=== PATIENT | male | born 1965 | race Caucasian/White ===

== ENCOUNTER → 2016-08-29 | Outpatient (CLI) | payer BC ==
--- NOTE | 2016-08-29 14:13 | US ---
EXAMINATION TYPE: US venous doppler duplex LE DATE OF EXAM: 08/29/2016 1:04 PM COMPARISON: NONE CLINICAL HISTORY: Edema, R60.0. Bilateral ankle swelling x 2 or 3 months SIDE PERFORMED: Bilateral TECHNIQUE: The lower extremity deep venous system is examined utilizing real time linear array sonog deshawn with graded compression, doppler sonography and color-flow sonography. VESSELS IMAGED: External Iliac Vein (EIV) Common Femoral Vein Deep Femoral Vein Greater Saphenous Vein * Femoral Vein Popliteal Vein Small Saphenous Vein * Proximal Calf Veins (* superficial vessels) Right Leg: Negative for DVT Left Leg: Negative for DVT Bilateral ankle edema channels are noted on US. No popliteal fossa lesion is seen. IMPRESSION: THIS EXAMINATION IS NEGATIVE FOR DVT IN BOTH LEGS.
== END | disposition home or self-care (01) ==
LOC: RADUSWWP 12:35
PROVIDERS: ATTEND Family Medicine
DX: R60.0 Localized edema (principal)
CPT/HCPCS: 93970

== ENCOUNTER 2016-09-10 09:37 | Emergency (ER) | payer BC ==
[2016-09-10] MEDS ORDERED: methylPREDNISolone SOD SUCCI 125 MG/2 ML VIAL IV STA (09:53)
[2016-09-10] MEDS ORDERED: ALBUTEROL NEBULIZED 2.5 MG/3 ML INHALATION STA (09:53)
[2016-09-10] MEDS ORDERED: IPRATROPIUM 0.5 MG/2.5 ML NEBU INHALATION STA (09:53)
--- NOTE | 2016-09-10 09:57 | ED ---
SOB HPI - General Chief Complaint: Shortness of Breath Stated Complaint: Asthma, Diff Breathing Time Seen by Provider: 09/10/16 09:49 Source: patient, RN notes reviewed Mode of arrival: ambulatory Limitations: no limitations - History of Present Illness Initial Comments: 51-year-old male presents to the emergency department with a chief complaint of shortness of breath. Patient suffers from asthma. He states the last 5 days and having increasing worsening shortness of breath. Patient states it started just at night but now it all day. Patient denies any fever chills with this. Patient denies a productive cough. Patient states been using his home breathing treatments with no improvement. Patient states that he does have history of asthma and this is much like a typical asthma attack. Patient states she was concerned due to his symptoms without that he should be evaluated. Patient denies any recent fever, chills, chest pain, back pain, abdominal pain, nausea vomiting, numbness or tingling, dysuria or hematuria, constipation or diarrhea, headaches or visual changes, or any other current symptoms. - Related Data Home Medications Medication Instructions Recorded Confirmed Losartan Potassium [Cozaar] 100 mg PO QAM 10/29/13 09/10/16 Albuterol Inhaler [Ventolin Hfa 1 - 2 puff INHALATION Q6HR PRN 02/07/16 09/10/16 Inhaler] Folic Acid 1 mg PO DAILY 02/27/16 09/10/16 Methotrexate Sodium [Methotrexate] 20 mg PO TU 02/27/16 09/10/16 Albuterol Nebulized [Ventolin 2.5 mg INHALATION RT-Q4H PRN 09/10/16 09/10/16 Nebulized] Metoprolol Tartrate [Lopressor] 75 mg PO BID 09/10/16 09/10/16 Previous Rx's Medication Instructions Recorded Ipratropium Nebulized [Atrovent 0.5 mg INHALATION Q6HR PRN #1 box 09/10/16 Nebulized] Mometasone/Formoterol [Dulera 200 2 puff INHALATION RT-BID #1 inhaler 09/10/16 Mcg/5 Mcg Inhaler] predniSONE 50 mg PO DAILY #5 tab 09/10/16 Allergies Allergy/AdvReac Type Severity Reaction Status Date / Time No Known Allergies Allergy Verified 09/10/16 10:07 Review of Systems ROS Statement: Those systems with pertinent positive or pertinent negative responses have been documented in the HPI. ROS Other: All systems not noted in ROS Statement are negative. Past Medical History Past Medical History: Asthma, Hypertension, Osteoarthritis (OA) Additional Past Medical History / Comment(s): AUTO IMMUNE DISORDER -BULLOUS PEMPHIGOID,NON HEALING WOUND RT LEG History of Any Multi-Drug Resistant Organisms: None Reported Past Surgical History: Appendectomy, Joint Replacement, Orthopedic Surgery Additional Past Surgical History / Comment(s): RT & LT KNEE ARTHROSCOPY and breana knee replacements, RT AND LEFT ROTATOR CUFF REPAIR,BENIGN MASS VOCAL CORDS Past Anesthesia/Blood Transfusion Reactions: No Reported Reaction Past Psychological History: No Psychological Hx Reported Smoking Status: Never smoker Past Alcohol Use History: Occasional Past Drug Use History: None Reported - Past Family History Mother Additional Family Medical History / Comment(s): Celiac Father Family Medical History: No Reported History General Exam - General Exam Comments Initial Comments: General: The patient is awake and alert, in moderate distress, and does not appear acutely ill. Eye: Pupils are equal, round and reactive to light, extra-ocular movements are intact; there is normal conjunctiva bilaterally. No signs of icterus. Ears, nose, mouth and throat: There are moist mucous membranes and no oral lesions. Neck: The neck is supple, there is no tenderness. Cardiovascular: There is a regular rate and rhythm. No murmur, rub or gallop is appreciated. Respiratory: Lungs are clear to auscultation, respirations are non-labored, breath sounds diminished with diffuse expiratory wheeze Gastrointestinal: Soft, non-distended, non-tender abdomen without masses or organomegaly noted. There is no rebound or guarding present. No CVA tenderness. Bowel sounds are unremarkable. Back: There is no tenderness to palpation in the midline. There is no obvious deformity. No rashes noted. Musculoskeletal: Normal ROM, no tenderness, There is no pedal edema. There is no calf tenderness or swelling. Sensation intact. Pulses equal bilaterally 2+. Neurological: CN II-XII intact, There are no obvious motor or sensory deficits. Coordination appears grossly intact. Speech is normal. Skin: Skin is warm and dry and no rashes or lesions are noted. Psychiatric: Cooperative, appropriate mood & affect, normal judgment. Limitations: no limitations Course Vital Signs 09/10/16 09/10/16 09/10/16 09:45 10:15 10:30 Temperature 98.4 F Pulse Rate 89 80 80 Respiratory 22 Rate Blood Pressure 135/88 O2 Sat by Pulse 93 L Oximetry 09/10/16 09/10/16 11:02 11:15 Temperature Pulse Rate 82 85 Respiratory Rate Blood Pressure O2 Sat by Pulse Oximetry Medical Decision Making - Medical Decision Making 51-year-old male presents emergency Department chief complaint of shortness of breath. At this time patient's lab work and x-rays reviewed and negative. Patient after the breathing treatment is feeling much better and wheezing has resolved at this time. We did watch the patient on treatment and he is having a relapse of symptoms. This time patient wishes that he go home. This time we did stated that we will start him on steroids for home. We did discuss continuing to 3 decubitus that he has we will refill some of his asthma prescriptions. We did discuss this could worsen and he may need hospitalization return to the emergency Department. The patient is negative plan he stated that he understood. He will be discharged. - Lab Data Result diagrams: 09/10/16 10:29 09/10/16 10:29 Lab Results 09/10/16 09/10/16 Range/Units 10:29 10:29 WBC 5.8 (3.8-10.6) k/uL RBC 4.56 (4.30-5.90) m/uL Hgb 15.7 (13.0-17.5) gm/dL Hct 44.0 (39.0-53.0) % MCV 96.3 (80.0-100.0) fL MCH 34.5 (25.0-35.0) pg MCHC 35.8 (31.0-37.0) g/dL RDW 13.3 (11.5-15.5) % Plt Count 234 (150-450) k/uL Neutrophils % 66 % Lymphocytes % 18 % Monocytes % 5 % Eosinophils % 7 % Basophils % 1 % Neutrophils # 3.8 (1.3-7.7) k/uL Lymphocytes # 1.1 (1.0-4.8) k/uL Monocytes # 0.3 (0-1.0) k/uL Eosinophils # 0.4 (0-0.7) k/uL Basophils # 0.1 (0-0.2) k/uL Sodium 137 (137-145) mmol/L Potassium 4.2 (3.5-5.1) mmol/L Chloride 103 (98-107) mmol/L Carbon Dioxide 19 L (22-30) mmol/L Anion Gap 15 mmol/L BUN 6 L (9-20) mg/dL Creatinine 0.73 (0.66-1.25) mg/dL Est GFR (MDRD) Af Amer >60 (>60 ml/min/1.73 sqM) Est GFR (MDRD) Non-Af >60 (>60 ml/min/1.73 sqM) Glucose 100 H (74-99) mg/dL Calcium 9.4 (8.4-10.2) mg/dL Total Bilirubin 2.4 H (0.2-1.3) mg/dL AST 42 (17-59) U/L ALT 47 (21-72) U/L Alkaline Phosphatase 57 (38-126) U/L Total Protein 6.9 (6.3-8.2) g/dL Albumin 4.4 (3.5-5.0) g/dL - Radiology Data Radiology results: report reviewed, image reviewed Disposition Clinical Impression: Asthma exacerbation Disposition: HOME SELF-CARE Condition: Stable Instructions: Asthma (ED) Additional Instructions: Please use medication as discussed. Please follow up with family doctor if symptoms have not improved over the next two days. Please return to the emergency room if your symptoms increase or worsen or for any other concerns. Prescriptions: Ipratropium Nebulized [Atrovent Nebulized] 0.5 mg INHALATION Q6HR PRN #1 box PRN Reason: sob Mometasone/Formoterol [Dulera 200 Mcg/5 Mcg Inhaler] 2 puff INHALATION RT-BID # 1 inhaler predniSONE 50 mg PO DAILY #5 tab Referrals: Osmani Agustin DO [Primary Care Provider] - 1-2 days Time of Disposition: 11:45
--- NOTE | 2016-09-10 11:03 | XR ---
EXAMINATION TYPE: XR chest 1V portable DATE OF EXAM: 09/10/2016 COMPARISON: 02/29/2016 HISTORY: Short of breath TECHNIQUE: Single frontal view of the chest is obtained. FINDINGS: Heart and mediastinum are normal. Lungs are clear. Diaphragm is normal. Bony thorax appear s normal. IMPRESSION: Normal chest. No change.
[2016-09-10 11:08] LABS: Basophils # (A) 0.1 k/uL (0-0.2); Basophils % (A) 1 %; CH 34.3; CHCM 35.8; Eosinophils # (A) 0.4 k/uL (0-0.7); Eosinophils % (A) 7 %; HDW 2.28; HGB 15.7 gm/dL (13.0-17.5); Luc # (Auto) 0.16; Luc % (Auto) 3; Lymphocytes # (A) 1.1 k/uL (1.0-4.8); Lymphocytes % (A) 18 %; MCH 34.5 pg (25.0-35.0); MCHC 35.8 g/dL (31.0-37.0); MCV 96.3 fL (80.0-100.0); Mean Platelet Volume 6.9; Monocytes # (A) 0.3 k/uL (0-1.0); Monocytes % (A) 5 %; Neutrophils # (A) 3.8 k/uL (1.3-7.7); Neutrophils % (A) 66 %; RBC 4.56 m/uL (4.30-5.90); RDW 13.3 % (11.5-15.5); WBC 5.8 k/uL (3.8-10.6); WBC (Perox) 5.45
[2016-09-10 11:23] LABS: ALT 47 U/L (21-72); AST 42 U/L (17-59); Alkaline Phosphatase 57 U/L (38-126); Anion Gap 15 mmol/L; Blood Urea Nitrogen 6 mg/dL (9-20); Calcium 9.4 mg/dL (8.4-10.2); Carbon Dioxide 19 mmol/L (22-30); Chloride 103 mmol/L (98-107); Glucose 100 mg/dL (74-99); Non-African American GFR(MDRD) >60 (>60 ml/min/1.73 sqM); Potassium 4.2 mmol/L (3.5-5.1); Sodium 137 mmol/L (137-145); Total Bilirubin 2.4 mg/dL (0.2-1.3); Total Protein 6.9 g/dL (6.3-8.2)
[2016-09-10 12:04] VITALS: BP 136/86; PULSE 91; RESP 20; TEMP 97.9
== END 2016-09-10 12:09 | disposition home or self-care (01) ==
LOC: EC 09:37
DX: J45.901 Unspecified asthma with (acute) exacerbation (principal); I10 Essential (primary) hypertension; Z96.653 Presence of artificial knee joint, bilateral; Z79.899 Other long term (current) drug therapy
CPT/HCPCS: 36415; 94644; 80053; 85025; 71010; 99285; 96374; J2930

== ENCOUNTER → 2018-07-09 | Outpatient (CLI) | payer BC ==
--- NOTE | 2018-07-10 07:30 | CONS ---
CONSULTATION DATE OF SERVICE: 07/09/2018 An 53-year-old gentleman who has been evaluated in the [facility] for possible obstructive sleep apnea-hypopnea syndrome. HISTORY OF PRESENT ILLNESS/SLEEP-WAKE EVALUATION: Patient usual sleep schedule on working days from 10 p.m. to 5:30 a.m. and from weekends from about 11 p.m. to 5:36 am. Usually no problems with falling asleep. No TV in bedroom. Patient usually sleeps on the side position with his with loud snoring and witnessed episodes of stopped breathing during the sleep, patient has awakenings from sleep up to 6 times with up to 2 episodes of nocturia. Positive history of heartburn during the sleep. During the day, patient does not take any naps. Mercer Sleepiness Scale is 3. PAST MEDICAL HISTORY: Positive for hypertension, depression, anxiety, back arthritis. PAST SURGICAL HISTORY: Bilateral knee replacement, bilateral shoulder surgery. MEDICATIONS: Metoprolol, Lexapro, losartan, trazodone, atorvastatin, , ibuprofen. SOCIAL HISTORY: Negative for smoking or using alcohol. FAMILY HISTORY: Hypertension, hyperlipidemia, arthritis, asthma, tuberculosis, acid reflux, diabetes. REVIEW OF SYSTEMS: Multiple awakenings from sleep. Sometimes tiredness during the day. PHYSICAL EXAM: gentleman without distress. BP 124/76, HR 62, RR 16, height 6 foot 1/2 inch, weight 269.6, body mass index 35.9, temperature 97.6, oxygen saturation at room air 95%. OROPHARYNX: Moderately low position of soft palate. Mallampati 2. Big uvula, restriction of nasal breathing, extremely wide neck 20 inches. ABDOMEN: Obese. LUNGS Clear to percussion and to auscultation. Good air exchange. No wheezing or rhonchi. HEART S1, S2 regular. No murmurs, gallops, or rubs. EXTREMITIES No clubbing or cyanosis. SUSTAINABILITY OFFICER Awake, alert, and oriented X3. Cranial nerves 2 to 7 intact. There is no fasciculation or atrophy. noted. No focal deficits observed. IMPRESSION: 1. Snoring, witnessed episodes of stopped breathing during the sleep. Wide neck, 20 inches in circumference. Obstructive sleep apnea-hypopnea syndrome. 2. Obesity, body mass index 35.9. 3. Hypertension. 4. History of depression. 5. History of anxiety. 6. Back arthritis. 7. Status post bilateral knee replacement. 8. Status post bilateral shoulder surgery. PLAN: 1. Home sleep apnea test for evaluation of patient's breathing during the sleep. 2. Following plan after reviewing results of home sleep study. 3. Losing weight. 4. Sleep hygiene with regular time in bed for at least 8 hours. 5. No driving if feeling sleepiness. Thank you very much for referring this patient for consultation. Sincerely, Pieter Mane MD, PhD, FAASM Diplomat of [employer]visor [employer] [facility] [place] MMODL / IJN: [id number] /
== END ==
LOC: SLEEP 15:28
PROVIDERS: ATTEND Internal Medicine
DX: G47.33 Obstructive sleep apnea (adult) (pediatric) (principal); E66.9 Obesity, unspecified; I10 Essential (primary) hypertension; F32.9 Major depressive disorder, single episode, unspecified; F41.9 Anxiety disorder, unspecified; M46.90 Unspecified inflammatory spondylopathy, site unspecified; Z96.653 Presence of artificial knee joint, bilateral; Z98.890 Other specified postprocedural states; Z68.35 Body mass index [BMI] 35.0-35.9, adult; Z79.1 Long term (current) use of non-steroidal anti-inflammatories (NSAID); Z79.899 Other long term (current) drug therapy
CPT/HCPCS: 99211